=== PATIENT | female | born 1960 | race Caucasian/White ===

== ENCOUNTER → 2018-08-30 | Outpatient (CLI) | payer MEDICAID | LOC: FIMAGING 12:50 | PROVIDERS: ATTEND Internal Medicine | DX: M54.2 Cervicalgia (principal); M25.78 Osteophyte, vertebrae ==

== ENCOUNTER → 2018-08-30 | Outpatient (CLI) | payer MEDICAID | LOC: FIMAGING 19:10 | PROVIDERS: ATTEND Internal Medicine | DX: R05 Cough (principal) ==